=== PATIENT | female | born 1995 | race Hispanic/Latino ===

== ENCOUNTER 2023-08-20 18:04 | Inpatient (IN) | payer BC ==
[2023-08-20 19:00] VITALS: BMI 43.4
[2023-08-20] MEDS ORDERED: hydrALAZINE 20 MG/ML VIAL SLOW IVP PRN (19:17)
[2023-08-20] MEDS ORDERED: Ibuprofen 800 MG TAB PO PRN (19:17)
[2023-08-20] MEDS ORDERED: HYDROcodone/Acetaminophen 5/325 mg Tablet PO PRN ×2 (19:17)
[2023-08-20] MEDS ORDERED: Ondansetron PF 4 MG/2 ML Vial IVP PRN (19:17)
[2023-08-20] MEDS ORDERED: Lidocaine 1% (PF) 30 ML VIAL SC PRN (19:17)
[2023-08-20] MEDS ORDERED: Promethazine HCl 25 MG/ML VIAL IM PRN (19:17)
[2023-08-20] MEDS ORDERED: Butorphanol Tartrate 1 MG/ML VIAL SLOW IVP PRN (19:17)
[2023-08-20] MEDS ORDERED: Oxytocin 30 units/NS 500 ML 500 ML IV SCH ×3 (19:30)
[2023-08-20] MEDS ORDERED: Lactated Ringer's 1,000 ML IV SCH (19:30)
[2023-08-20] MEDS ORDERED: Misoprostol 100 MCG TAB VAG SCH (19:30)
[2023-08-20] MEDS ORDERED: Penicillin G Potassium 5 MILL.UNITS in Sodium Chloride 0.9% 100 ML IVPB SCH (19:30)
[2023-08-20 19:36] LABS: Hematocrit 37.9 % (34.9-44.5); Hemoglobin 12.6 g/dL (12.0-15.5); Mean Corpuscular HGB CONC 33.2 g/dL (32.0-36.0); Mean Corpuscular Hemoglobin 28.1 pg (27.0-33.0); Mean Corpuscular Volume 84.4 fl (81.6-98.3); Mean Platelet Volume 11.1 fl (7.4-10.4); Platelet Count 198 10x3/uL (150-450); RBC Distribution Width 13.9 % (11.5-14.5); Red Blood Cell (RBC) Count 4.49 10x6/uL (3.90-5.03); White Blood Cell (WBC) Count 9.4 10x3/uL (3.5-10.5)
[2023-08-20 22:06] LABS: HBSAg Index 0.16 S/CO (0-0.99); Hep B Surf Ag - L&D Non-Reactive S/CO (NonReactive)
[2023-08-20 22:07] LABS: Syphilis Antibody Nonreactive (Nonreactive); Syphilis Antibody Index 0.06 S/CO (<1.00 Non-Reactive)
[2023-08-21] MEDS: Misoprostol 100 MCG TAB VAG SCH (00:02)
[2023-08-21] MEDS: Penicillin G 2.5 MILL.units 2.5 MILL.UNITS in Premix 1 BAG IVPB SCH ×4 (00:03→17:00)
[2023-08-21] MEDS ORDERED: fentaNYL 50 mcg/mL 1 mL Vial ONE (05:15)
[2023-08-21] MEDS ORDERED: fentaNYL 50 mcg/mL 1 mL Vial SLOW IVP PRN ×2 (05:21→20:58)
[2023-08-21] MEDS ORDERED: fentaNYL/Ropivacaine Epidural 100 ML ONE (07:20)
[2023-08-21] MEDS ORDERED: Naloxone HCl 0.4 mg/ml Vial IVP PRN ×4 (08:22→20:58)
[2023-08-21] MEDS ORDERED: Acetaminophen 325 MG TAB PO PRN (08:22)
[2023-08-21] MEDS ORDERED: ePHEDrine Sulfate 50 MG/10 ML VIAL SLOW IVP PRN (08:22)
[2023-08-21] MEDS ORDERED: Moisturizing Cream (Eucerin) 113 GM JAR TOP PRN ×2 (08:22→20:58)
[2023-08-21] MEDS ORDERED: Promethazine HCl 25 MG/ML VIAL IM PRN ×2 (08:22→20:58)
[2023-08-21] MEDS ORDERED: diphenhydrAMINE 50 MG/ML VIAL IVP PRN ×2 (08:22→20:58)
[2023-08-21] MEDS ORDERED: Lactated Ringer's 500 ML IV PRN (08:22)
[2023-08-21] MEDS ORDERED: Ondansetron PF 4 MG/2 ML Vial IVP PRN ×4 (08:22→23:45)
[2023-08-21] MEDS ORDERED: Communication Order-Pharmacy FS SCH ×2 (08:30→21:00)
[2023-08-21] MEDS ORDERED: fentaNYL 2 mcg/Ropivacaine 0.2% Epidural 100 ML CADD EPIDURAL SCH (08:30)
[2023-08-21] MEDS ORDERED: Azithromycin 500 MG VIAL ONE (18:57)
[2023-08-21] MEDS ORDERED: CEFAZOLIN 2 GM VIAL ONE (18:57)
[2023-08-21] MEDS ORDERED: Bicitra 30 ML UDCUP PO PRN (19:18)
[2023-08-21] MEDS ORDERED: Famotidine/PF 20 mg/2ml Vial SLOW IVP PRN (19:18)
[2023-08-21] MEDS ORDERED: Azithromycin 500 MG in Sodium Chloride 0.9% 250 ML 250 ML IVPB SCH (19:30)
[2023-08-21] MEDS ORDERED: CEFAZOLIN 2 GM in Sodium Chloride 0.9% 100 ML IVPB SCH (19:30)
[2023-08-21] MEDS ORDERED: Tranexamic Acid 1,000 MG/10 ML VIAL ONE (20:10)
[2023-08-21] MEDS ORDERED: Carboprost 250 MCG/ML AMP ONE (20:10)
[2023-08-21] MEDS ORDERED: Methylergonovine 0.2 MG/ML VIAL ONE (20:10)
[2023-08-21] MEDS ORDERED: Misoprostol 200 MCG TAB ONE (20:13)
[2023-08-21] MEDS ORDERED: Morphine PF 10 MG/10 ML VIAL ONE (20:19)
[2023-08-21] MEDS ORDERED: Meperidine HCl/PF 25 MG/ML VIAL SLOW IVP PRN (20:58)
[2023-08-21] MEDS ORDERED: Naloxone HCl 0.4 mg/ml Vial IV PRN (20:58)
[2023-08-21] MEDS ORDERED: Promethazine HCl 25 MG SUPP PR PRN (20:58)
[2023-08-21] MEDS ORDERED: Ketorolac Tromethamine 30 MG/ML VIAL IVP SCH (21:00)
[2023-08-21] MEDS ORDERED: diphenhydrAMINE 25 MG CAP PO PRN (23:45)
[2023-08-21] MEDS ORDERED: Simethicone Chewable 80 MG TAB PO PRN (23:45)
[2023-08-21] MEDS ORDERED: Oxytocin 30 units/NS 500 ML 500 ML IV SCH (23:45)
[2023-08-21] MEDS ORDERED: Bisacodyl 10 MG SUPP PR PRN (23:45)
[2023-08-21] MEDS ORDERED: hydrALAZINE 20 MG/ML VIAL SLOW IVP PRN (23:45)
[2023-08-21] MEDS ORDERED: Boostrix 0.5 ML (Tdap) VIAL (>/=7 yrs of age) IM ONE (23:45)
[2023-08-21] MEDS ORDERED: Lanolin Ointment 7 GM TUBE TOP PRN (23:45)
[2023-08-21] MEDS ORDERED: Docusate 100 MG CAP PO SCH (23:59)
[2023-08-21] MEDS ORDERED: Ferrous Sulfate 325 MG TAB PO SCH (23:59)
[2023-08-22] MEDS: Misoprostol 100 MCG TAB VAG SCH ×3 (00:32→00:36)
[2023-08-22] MEDS: Penicillin G 2.5 MILL.units 2.5 MILL.UNITS in Premix 1 BAG IVPB SCH (00:33)
[2023-08-22 04:07] LABS: Hematocrit 30.5 % (34.9-44.5); Hemoglobin 10.4 g/dL (12.0-15.5); Mean Corpuscular HGB CONC 34.1 g/dL (32.0-36.0); Mean Platelet Volume 11.1 fl (7.4-10.4); Platelet Count 165 10x3/uL (150-450); RBC Distribution Width 13.8 % (11.5-14.5); Red Blood Cell (RBC) Count 3.59 10x6/uL (3.90-5.03); White Blood Cell (WBC) Count 15.6 10x3/uL (3.5-10.5)
[2023-08-22] MEDS: Ketorolac Tromethamine 30 MG/ML VIAL IVP PRN ×2 (04:25→13:00)
[2023-08-22] MEDS: Prenatal Vitamin 1 TAB PO SCH (08:35)
[2023-08-22] MEDS: Docusate 100 MG CAP PO SCH ×2 (08:35→22:01)
[2023-08-22] MEDS: HYDROcodone/Acetaminophen 5/325 mg Tablet PO PRN ×4 (08:35→22:01)
[2023-08-22] MEDS: Ferrous Sulfate 325 MG TAB PO SCH ×2 (08:48→19:37)
[2023-08-22] MEDS: Ibuprofen 800 MG TAB PO SCH (22:01)
[2023-08-23] MEDS: Ibuprofen 800 MG TAB PO SCH (05:23)
[2023-08-23] MEDS: HYDROcodone/Acetaminophen 5/325 mg Tablet PO PRN ×2 (05:25→11:58)
[2023-08-23] MEDS ORDERED: Lidocaine 2% MPF 10 ML AMP (For Epidural Use) ONE (08:00)
[2023-08-23] MEDS ORDERED: Bupivacaine 0.25% HCL 30 ML VIAL ONE (08:00)
[2023-08-23] MEDS: Docusate 100 MG CAP PO SCH (08:27)
[2023-08-23] MEDS: Prenatal Vitamin 1 TAB PO SCH (08:28)
[2023-08-23] MEDS: Ferrous Sulfate 325 MG TAB PO SCH (10:24)
[2023-08-23 11:16] VITALS: BP 127/82; TEMP 98
== END 2023-08-23 13:25 | disposition home or self-care (01) | DRG 788 ==
LOC: CSHLD 18:04 → CSHPP 08-22 02:04
PROVIDERS: ADMIT Obstetrics & Gynecology; ATTEND Obstetrics & Gynecology
PROC: 10D00Z1 Extraction of Products of Conception, Low, Open Approach (ICD-10-PCS; principal; 2023-08-21)
PROC: 3E0P7VZ Introduction of Hormone into Female Reproductive, Via Natural or Artificial Opening (ICD-10-PCS; 2023-08-21)
PROC: 3E033XZ Introduction of Vasopressor into Peripheral Vein, Percutaneous Approach (ICD-10-PCS; 2023-08-21)
DX: O24.425 Gestational diabetes mellitus in childbirth, controlled by oral hypoglycemic drugs (principal); Z37.0 Single live birth; O99.214 Obesity complicating childbirth; O62.1 Secondary uterine inertia; O32.8XX0 Maternal care for other malpresentation of fetus, not applicable or unspecified; Z3A.39 39 weeks gestation of pregnancy
CPT/HCPCS: 36415; 36416; 51702; 85027; 86780; 86850; 86900; 86901; 87340; J1885; J2274; J2405; J2540; J2590; J3010; J3490; S0020